=== PATIENT | female | born 2000 | race Native Hawaiian/Other Pacific Islander ===

== ENCOUNTER 2021-02-11 21:56 | Emergency (ER) | payer MEDICAID, SELFPAY ==
[2021-02-11 22:22] VITALS: BP 141/80; PULSE 95; RESP 16; TEMP 37.1; O2SAT 98; BMI 46.0
--- NOTE | 2021-02-12 00:46 | ED_ITS ---
HPI - Skin/Abscess/Foreign Bdy General Chief complaint: Skin/Abscess/Foreign Body Stated complaint: ? infected ingrown hair Time Seen by Provider: 02/11/21 23:31 Source: patient Mode of arrival: ambulatory History of Present Illness HPI narrative: 20-year-old female with no significant past medical history presenting to the ED complaining of lesions to vagina x a few days. Reports small amount of drainage from area yesterday. Admits to similar symptoms in the past in which she was treated for folliculitis. Admits area is painful/burning. Is sexually active with 1 male partner, denies history of STIs, reports she is tested for STIs yearly, has been tested for herpes and is always negative. Denies abdominal pain, nausea/vomiting, dysuria/hematuria, rectal pain, vaginal discharge/bleeding MD complaint: rash and abscess/boil Related Data Previous Rx's Medication Instructions Recorded cephalexin 500 mg PO QID 7 Days #28 cap 02/12/21 doxycycline hyclate 100 mg PO BID 7 Days #14 tab 02/12/21 Allergies Allergy/AdvReac Type Severity Reaction Status Date / Time No Known Allergies Allergy Verified 02/11/21 22:27 [No Known Allergies*] Review of Systems Review of Systems: Constitutional: No Fever, No Chills Cardiovascular: No Chest Pain, No SOB Respiratory: No Cough, No Dyspnea Gastrointestinal: No Nausea, No Vomiting, No Diarrhea, No Abdominal pain Genitourinary: No irregular bleeding, No Dysuria, No Urinary Frequency, No Hematuria Musculoskeletal: No joint pain, No Myalgias, No Joint Swelling Skin: + Skin Lesions, No rash Yes all other systems are reviewed and are negative [facility]LY [facility] Past Medical History Attestation statement: The following information was validated with the patient. Medical History (Updated 02/12/21 @ 00:48 by TYRELL Lawson) No known health problems Social History Social History Advance Directives: No Advance Directives Information Provided: No Patient : No Physical Exam Vital Signs: Vital Signs: Last Vital Signs Temp 98.8 F 02/11/21 22:22 Pulse 95 02/11/21 22:22 Resp 16 02/11/21 22:22 BP 141/80 H 02/11/21 22:22 Pulse Ox 98 02/11/21 22:22 Body Mass Index 46.0 Const: General: cooperative, healthy appearing and no acute distress O rientation/consciousness: patient oriented x3 Limitations: no limitations HENMT: Head: Yes normal to inspection Ears: hearing grossly normal bilaterally General nose exam: Normal external nose present Face and sinu s: Yes normal facial exam Eyes: General: appearance normal, both eyes and all related structures EOM: EOMs intact bilaterally Neck: Neck: Yes normal visual inspection Resp: Effort & Inspection: normal respiratory effort Cardio: Rate: regular rate GI: Inspection: Yes normal to inspection Palpation (GI): Soft to palpation, nontender, no guarding and not rigid Skin: Other: + multiple lesions/ulcerations noted to mons pubis and the labia majora. + indurated, no fluctuance or drainage Rashes: no rashes Neuro: General: patient oriented x3 Gait exam (Neuro): Normal gait present Extrem: General: Yes normal to inspection MDM - Skin/Abscess/Foreign Bdy MDM Narrative Medical decision making narrative: 20-year-old female with no significant past medical history presenting to the ED complaining of lesions to vagina x a few days. On exam VSS, NAD/nontoxic, physical exam as above. Lesions concerning for possible herpes vs infected folliculitis vs abscess. Areas not needing I& D at this time Patient reports she has mupirocin cream at home Plan: Doxycycline/Keflex, herpes culture, OBGYN follow-up Medical Records Attestation: I reviewed the patient's medical records. Lab Data Attestation: I reviewed the patient's lab results. Discharge Plan Discharge Clinical Impression: Abscess, Vaginal lesion Patient Disposition: Home, Self-Care Instructions: Abscess (ED), Abscess Follow-up (ED) Additional Instructions: Keflex and doxycycline or antibiotics, please take as prescribed You may continue to apply topical mupirocin at home Please avoid the sun while on doxycycline as makes you sensitive to the sun We tested you for herpes, the culture should be back in a couple days, you will be contacted only with positive results If area begins to look worse, is more painful, head is red/swollen, begins to drain pus, or you fever please return to the ED immediately Prescriptions: New cephalexin 500 mg capsule 500 mg PO QID 7 Days Qty: 28 RF: 0 doxycycline hyclate 100 mg tablet 100 mg PO BID 7 Days Qty: 14 RF: 0 Referrals: Rosina Ayala MD [Primary Care Provider] - 2 days Luis Black MD [Physician] - 1 week Interventions: ED Discharge Assessment Last Done: 02/12/21 01:03 Discharge Date/Time: 02/12/21 01:06
== END 2021-02-12 01:06 | disposition home or self-care (01) ==
PROVIDERS: Physician Assistant; Emergency Provider Internal Medicine; PCP Pediatrics
DX: N76.0 Acute vaginitis (principal)
CPT/HCPCS: 87255; 99283; 99284

== ENCOUNTER 2022-01-01 02:43 | Emergency (ER) | payer MEDICAID, SELFPAY ==
--- NOTE | ~2022-01-01 | CT_ITS ---
EXAMINATION: CT ABDOMEN AND PELVIS WITHOUT CONTRAST CLINICAL INFORMATION: Flank pain COMPARISON: 04/06/2020 TECHNIQUE: Multidetector volumetric imaging was performed from the superior aspect of the liver through the pubic symphysis. Sagittal and coronal reformatted images were obtained on the technologist's workstation. This CT examination was performed using dose optimization techniques as appropriate, variously including the following: *Automated exposure control *Adjustment of mA and/or kV according to patient size (this includes techniques or standardized protocols for targeted exams where dose is matched to indication/reason for exam; i.e. extremities or head) *Use of iterative reconstruction technique DLP: 1182 mGy-cm FINDINGS: LUNG BASES: Linear opacity of mild atelectasis in left lower lobe. No pulmonary consolidation or pleural effusion at either lung base. LIVER: The liver has normal size, shape, and attenuation. No evidence of liver mass. GALLBLADDER AND BILIARY TREE: Gallbladder is without radiopaque stones, wall thickening or pericholecystic fluid. No dilated bile ducts. PANCREAS: Normal. No edema, pancreatic ductal dilatation or mass. SPLEEN: Normal. ADRENAL GLANDS: Normal. KIDNEYS AND URETERS: The kidneys have normal size and cortical thickness. No perinephric fluid collection. No urolithiasis or hydroureteronephrosis. BLADDER: Normal. No calculi or wall thickening. BOWEL AND PERITONEUM: Stomach is unremarkable. No dilated loops of bowel. The appendix is surgically absent. No overt bowel wall thickening or mesenteric fat stranding. No ascites or pneumoperitoneum. ABDOMINAL WALL: Unremarkable. VASCULATURE: Unremarkable. LYMPH NODES: No pathologic sized lymph nodes in the abdomen or pelvis. The inguinal lymph nodes are in the normal size range, measuring up to 1 cm short axis dimension, and are unchanged compared to 04/06/2020. PELVIC VISCERA: The uterus and ovaries are unremarkable. No pelvic free fluid. SKELETAL: Unremarkable. CT/CT abdomen pelvis wo con IMPRESSION: * No evidence of nephrolithiasis or hydronephrosis. * Status post appendectomy. No inflammatory changes or obstruction along the gastrointestinal tract. No specific source of flank pain is identified.
[2022-01-01 03:06] VITALS: BP 128/102; PULSE 104; RESP 18; TEMP 37.9; O2SAT 98; BMI 48.4
[2022-01-01 03:22] LABS: MANUAL DIFF FLAG NO
[2022-01-01 03:23] LABS: Basophils Absolute Auto 0.1 X10*3/uL (0.0-0.2); Basophils Percent Auto 0.4 % (0-2); Eosinophils Absolute Auto 0.3 X10*3/uL (0.0-0.4); Hematocrit 38.6 % (37.0-47.0); Hemoglobin 12.2 g/dl (12.0-16.0); Imm Gran Abs Auto 0.07 X10*3/uL (0.00-0.03); Imm Gran Pct Auto 0.5 % (0.0-0.4); Lymphocytes Percent Auto 29.7 % (20-40); Mean Corpuscular HGB Conc 31.6 g/dl (31.0-35.0); Mean Corpuscular Hemoglobin 27.6 pg (27.0-33.0); Mean Corpuscular Volume 87.3 fL (80.0-98.0); Mean Platelet Volume 10.9 fL (9.4-12.3); Monocytes Absolute Auto 1.3 X10*3/uL (0.1-1.2); Monocytes Percent Auto 9.4 % (2-11); Neutrophils Absolute Auto 7.7 x10*3/uL (2.0-8.3); Platelet Count 309 X10*3/uL (160-400); Red Blood Count 4.42 X10*6/uL (4.20-5.50); Red Cell Distribution Width 12.8 % (11.0-16.0); White Blood Count 13.4 X10*3/uL (4.8-10.8)
[2022-01-01 03:41] LABS: Amylase 50 U/L (28-100)
[2022-01-01 03:43] LABS: Alanine Aminotransferase 20 U/L (0-31); Albumin Level 4.2 g/dL (3.5-5.0); Alkaline Phosphatase 74 U/L (39-117); Anion Gap 12 (12-20); Aspartate Amino Transferase 16 U/L (5-31); Bilirubin Total 0.6 mg/dL (0.0-1.0); Blood Urea Nitrogen 9 mg/dL (9-16); Calcium 9.1 mg/dL (8.4-10.2); Carbon Dioxide 27 mmol/L (22-29); Chloride 101 mmol/L (96-108); Creatinine Clr Calc Pharmacy 155.1; Estimated Glomerular Filt Rate > 60; Glucose Random 107 mg/dL (60-115); Lipase 6 U/L (8-78); Potassium 4.1 mmol/L (3.3-5.1); Sodium 136 mmol/L (135-145); Total Protein 7.6 g/dL (6.5-8.0)
[2022-01-01 06:28] LABS: Appearance Urine HAZY; Color Urine YELLOW; Glucose Urine UA NEG (NEG); Leukocyte Esterase Urine NEG (NEG); Nitrite Urine NEG (NEG); Specific Gravity - Urine >= 1.030 (1.005-1.025); UACC Culture Trigger NO; Urine Blood 3+ (NEG); Urine Ketones 15 MG/DL (NEG); Urine Protein 1+ MG/DL (NEG-TRACE)
[2022-01-01 06:33] LABS: UPreg QC Valid YES; Urine Pregnancy NEGATIVE (NEGATIVE)
[2022-01-01 06:41] LABS: Bacteria Urine TRACE /LPF; Squamous Epithelial Cell Urine 2+ /LPF
--- NOTE | 2022-01-01 08:06 | ED_ITS ---
HPI - Abdominal Pain General Chief Complaint: Abdominal Pain Stated Complaint: uti;l flank pain Time Seen by Provider: 01/01/22 05:25 Source: patient Mode of arrival: ambulatory Limitations: no limitations History of Present Illness HPI narrative: 21-year-old female came in for evaluation of left flank pain. Patient recently was seen at urgent care for symptoms of UTI 3 days ago patient was started on Bactrim twice a day, return today for worsening of left flank pain and subjective fever with persistent of symptoms. Patient decline nausea, vomiting, diarrhea. History of appendectomy in the past. No vaginal discharge, no vaginal bleeding. Related Data Previous Rx's Medication Instructions Recorded cephalexin 500 mg capsule 500 mg PO QID 7 Days #28 cap 02/12/21 doxycycline hyclate 100 mg tablet 100 mg PO BID 7 Days #14 tab 02/12/21 levofloxacin 750 mg tablet 750 mg PO DAILY 10 Days #10 tab 01/01/22 Allergies Allergy/AdvReac Type Severity Reaction Status Date / Time No Known Allergies Allergy Verified 02/11/21 22:27 [No Known Allergies*] Review of Systems Review of Systems All other systems are reviewed and are negative Constitutional: Reports as per HPI and Reports no additional constitutional complaints Eyes: Reports as per HPI and Reports no additional eye complaints Reports system reviewed and no additional complaints, except as documented Cardiovascular: Reports as per HPI and Reports no additional cardiovascular complaints Respiratory: Reports as per HPI and Reports no additional respiratory complaints Gastrointestinal: Reports as per HPI and Reports no additional gastrointestinal complaints Genitourinary: Reports no additional female genitourinary complaints Musculoskeletal: Reports no additional musculoskeletal complaints Skin/Breast: Reports system reviewed and no additional complaints, except as docu Psychiatric: Reports no additional psychiatric complaints Endocrine: Reports no additional endocrine complaints Hematologic/Lymphatic: Reports no additional hematologic/lymphatic complaints Allergic/Immunologic: Reports no additional allergic/immunologic complaints Reports system reviewed and no additional complaints, except as documented and Reports Abnormal speech present [facility] Past Medical History Medical History No known health problems Social History Social History Advance Directives: No Advance Directives Information Provided: No Physical Exam ED Vital Signs: Vital Signs - 24 hr 01/01/22 03:06 Temperature 100.3 F Pulse Rate 104 H Respiratory Rate 18 Blood Pressure 128/102 H Pulse Oximetry 98 BMI result Body Mass Index 48.4 Vital signs have been reviewed as appeared to be correct. Blood pressure normal. Heart rate elevated. Respiration rate normal. Low-grade fever. Oxygen saturation normal. Appearance: Alert. Oriented X3. No acute distress. Head: Normal external exam. Normocephalic. Atraumatic. No Walls signs noted. No raccoon eyes noted Eyes: PERRLA. EOMI. Conjunctiva and sclera normal. Eyelids normal. ENT: TM's Normal. Pharynx normal. Uvula midline. Moist mucous membranes. No trismus noted. No drooling noted. No muffled voice noted. Neck: Normal inspection. Neck supple. FROM. No adenopathy. Thyroid Normal. No meningeal signs. No neck mass noted. CVS: Normal heart rate and rhythm. Heart sound normal. No murmurs noted. Pulses normal throughout. Respiratory: No respiratory distress. Painless inspiration. Breath sounds normal. No wheezes/rales/rhonchi noted. Chest nontender. No accessory muscle usage noted or decreased air movement noted. Abdomen: Soft and nontender. Bowel sounds normal in all 4 quadrants. No distention noted. No organomegaly noted. No visible injury noted. Back: Left CVA tenderness. Full range of motion noted. Skin: Skin warm and dry. Normal skin color. Normal skin turgor. No rashes/lesions/lacerations noted. Extremities: No lower extremity edema. Extremities exhibit normal range of motion. Extremities nontender. Neuro: Oriented X 3. Cranial nerve exam: II-XII are grossly intact No motor deficit. No sensory deficit. Reflexes normal. Course Course Course Narrative: Assessment and plan. 21-year-old female came in with left flank pain, few days ago patient had symptoms the was suggesting UTI. Patient was treated with Bactrim, came in today for persistent of symptoms with left flank pain and low-grade fever, exam is consistent with pyelonephritis, had CT of the abdomen and pelvis which showed no acute obstructive uropathy. Was given IV Levaquin and IV hydration and patient feels better. Will start the patient on Levaquin p.o. and patient was encouraged to drink plenty of fluids. MDM - Abdominal Pain Lab Data Attestation: I reviewed the patient's lab results. Result diagrams: 01/01/22 03:14 01/01/22 03:14 Labs: Lab Results 01/01/22 01/01/22 01/01/22 Range/Units 03:14 03:14 06:03 WBC 13.4 H (4.8-10.8) X10*3/uL RBC 4.42 (4.20-5.50) X10*6/uL Hgb 12.2 (12.0-16.0) g/dl Hct 38.6 (37.0-47.0) % MCV 87.3 (80.0-98.0) fL MCH 27.6 (27.0-33.0) pg MCHC 31.6 (31.0-35.0) g/dl RDW 12.8 (11.0-16.0) % Plt Count 309 (160-400) X10*3/uL MPV 10.9 (9.4-12.3) fL Immature Gran % (Auto) 0.5 H (0.0-0.4) % Neut % (Auto) 58.0 (45-73) % Lymph % (Auto) 29.7 (20-40) % [place] % (Auto) 9.4 (2-11) % Eos % (Auto) 2.0 (0-4) % Baso % (Auto) 0.4 (0-2) % Lymph # (Auto) 4.0 (1.2-4.9) X10*3/uL [place] # (Auto) 1.3 H (0.1-1.2) X10*3/uL Eos # (Auto) 0.3 (0.0-0.4) X10*3/uL Baso # (Auto) 0.1 (0.0-0.2) X10*3/uL Abs Immat Gran (auto) 0.07 H (0.00-0.03) X10*3/uL Absolute Neuts (auto) 7.7 (2.0-8.3) x10*3/uL Absolute Nucleated RBC 0.000 (0.0-0.012) X10*3/uL Nucleated RBC % (auto) 0.0 (0.0-0.2) /100WBC Sodium 136 (135-145) mmol/L Potassium 4.1 (3.3-5.1) mmol/L Chloride 101 (96-108) mmol/L Carbon Dioxide 27 (22-29) mmol/L Anion Gap 12 (12-20) BUN 9 (9-16) mg/dL Creatinine 0.74 (0.5-1.4) mg/dL Estim Creat Clear Calc 155.1 Estimated GFR > 60 Random Glucose 107 (60-115) mg/dL Lactic Acid (0.5-2.0) mmol/L Calcium 9.1 (8.4-10.2) mg/dL Total Bilirubin 0.6 (0.0-1.0) mg/dL AST 16 (5-31) U/L ALT 20 (0-31) U/L Alkaline Phosphatase 74 (39-117) U/L Total Protein 7.6 (6.5-8.0) g/dL Albumin 4.2 (3.5-5.0) g/dL Amylase 50 (28-100) U/L Lipase 6 L (8-78) U/L Urine Color YELLOW Urine Appearance HAZY Urine pH 6.0 (5.0-8.0) Ur Specific [place] >= 1.030 H (1.005-1.025) Urine Protein 1+ H (NEG-TRACE) MG/DL Urine Glucose (UA) NEG (NEG) MG/DL Urine Ketones 15 (NEG) MG/DL Urine Blood 3+ H (NEG) Urine Nitrite NEG (NEG) Ur Leukocyte Esterase NEG (NEG) Urine RBC 76-150 H (0) /HPF Urine WBC 1-4 (0-4) /HPF Ur Squamous Epith Cells 2+ /LPF Urine Bacteria TRACE /LPF Urine Test (NEGATIVE) 01/01/22 01/01/22 Range/Units 06:03 08:21 WBC (4.8-10.8) X10*3/uL RBC (4.20-5.50) X10*6/uL Hgb (12.0-16.0) g/dl Hct (37.0-47.0) % MCV (80.0-98.0) fL MCH (27.0-33.0) pg MCHC (31.0-35.0) g/dl RDW (11.0-16.0) % Plt Count (160-400) X10*3/uL MPV (9.4-12.3) fL Immature Gran % (Auto) (0.0-0.4) % Neut % (Auto) (45-73) % Lymph % (Auto) (20-40) % [place] % (Auto) (2-11) % Eos % (Auto) (0-4) % Baso % (Auto) (0-2) % Lymph # (Auto) (1.2-4.9) X10*3/uL [place] # (Auto) (0.1-1.2) X10*3/uL Eos # (Auto) (0.0-0.4) X10*3/uL Baso # (Auto) (0.0-0.2) X10*3/uL Abs Immat Gran (auto) (0.00-0.03) X10*3/uL Absolute Neuts (auto) (2.0-8.3) x10*3/uL Absolute Nucleated RBC (0.0-0.012) X10*3/uL Nucleated RBC % (auto) (0.0-0.2) /100WBC Sodium (135-145) mmol/L Potassium (3.3-5.1) mmol/L Chloride (96-108) mmol/L Carbon Dioxide (22-29) mmol/L Anion Gap (12-20) BUN (9-16) mg/dL Creatinine (0.5-1.4) mg/dL Estim Creat Clear Calc Estimated GFR Random Glucose (60-115) mg/dL Lactic Acid 0.5 (0.5-2.0) mmol/L Calcium (8.4-10.2) mg/dL Total Bilirubin (0.0-1.0) mg/dL AST (5-31) U/L ALT (0-31) U/L Alkaline Phosphatase (39-117) U/L Total Protein (6.5-8.0) g/dL Albumin (3.5-5.0) g/dL Amylase (28-100) U/L Lipase (8-78) U/L Urine Color Urine Appearance Urine pH (5.0-8.0) Ur Specific [place] (1.005-1.025) Urine Protein (NEG-TRACE) MG/DL Urine Glucose (UA) (NEG) MG/DL Urine Ketones (NEG) MG/DL Urine Blood (NEG) Urine Nitrite (NEG) Ur Leukocyte Esterase (NEG) Urine RBC (0) /HPF Urine WBC (0-4) /HPF Ur Squamous Epith Cells /LPF Urine Bacteria /LPF Urine Test NEGATIVE (NEGATIVE) Imaging Data CT abdomen pelvis: Attestation: I personally reviewed and interpreted this imaging study as follows: Radiologist's impression: *? No evidence of nephrolithiasis or hydronephrosis. *? Status post appendectomy. No inflammatory changes or obstruction along the gastrointestinal tract. No specific source of flank pain is identified. Discharge Plan Discharge Clinical Impression: Pyelonephritis Patient Disposition: Home, Self-Care Instructions: Kidney Infection (ED) Prescriptions: New levofloxacin 750 mg tablet 750 mg PO DAILY 10 Days Qty: 10 0RF No Action cephalexin 500 mg capsule 500 mg PO QID 7 Days Qty: 28 0RF doxycycline hyclate 100 mg tablet 100 mg PO BID 7 Days Qty: 14 0RF Referrals: [facility] [Primary Care Provider] -
[2022-01-01] MEDS: Acetaminophen 325 MG TABLET 650 MG PO (08:24)
[2022-01-01] MEDS: 0.9 % Sodium Chloride 1,000 ML 999 ML IV (08:25)
[2022-01-01 08:45] LABS: Lactic Acid 0.5 mmol/L (0.5-2.0)
[2022-01-01] MEDS: levoFLOXacin/D5W 750 MG/150 ML PIGGYBACK 100 MG IV (08:47)
== END 2022-01-01 11:02 | disposition home or self-care (01) ==
PROVIDERS: Emergency Provider Emergency Medicine
DX: N12 Tubulo-interstitial nephritis, not specified as acute or chronic (principal); R10.9 Unspecified abdominal pain; Z79.899 Other long term (current) drug therapy
CPT/HCPCS: 36415; 74176; 80053; 81001; 81025; 82150; 83605; 83690; 85025; 87040; 87147; 87205; 96361; 96365; 99282; J1956

== ENCOUNTER 2022-12-09 07:53 | Outpatient (REF) | payer MEDICAID, SELFPAY ==
[2022-12-09 09:15] LABS: Anion Gap 11 (12-20); Blood Urea Nitrogen 10 mg/dL (9-16); Calcium 9.5 mg/dL (8.4-10.2); Carbon Dioxide 28 mmol/L (22-29); Chloride 105 mmol/L (96-108); Estimated Glomerular Filt Rate > 60; Glucose Random 110 mg/dL (60-115); Potassium 4.6 mmol/L (3.3-5.1); Sodium 139 mmol/L (135-145)
[2022-12-09 09:35] LABS: Thyroid Stimulating Hormone 1.24 uIU/mL (0.32-4.0)
== END 2022-12-09 07:54 | disposition home or self-care (01) ==
LOC: HO.LAB 07:53
PROVIDERS: PCP Internal Medicine; Visit Provider Internal Medicine
DX: E66.01 Morbid (severe) obesity due to excess calories (principal); Z68.42 Body mass index [BMI] 45.0-49.9, adult; L21.0 Seborrhea capitis
CPT/HCPCS: 36415; 80048; 84443

== ENCOUNTER 2023-03-23 18:26 | Outpatient (REF) | payer OTHER, SELFPAY | END 2023-03-23 18:27 | disposition home or self-care (01) | LOC: HO.HHCLNP 18:26 | PROVIDERS: Visit Provider Emergency Medicine | DX: R30.0 Dysuria (principal); N30.00 Acute cystitis without hematuria | CPT/HCPCS: 87086; 87088; 87186 ==

== ENCOUNTER 2023-06-14 08:44 | Outpatient (REF) | payer OTHER, SELFPAY ==
[2023-06-14 11:35] LABS: Estimated Average Glucose 117 mg/dL; Hemoglobin A1c % 5.7 % (<6.0)
[2023-06-14 11:44] LABS: Alanine Aminotransferase 19 U/L (0-31); Albumin Level 4.3 g/dL (3.5-5.0); Alkaline Phosphatase 65 U/L (39-117); Anion Gap 10 (12-20); Aspartate Amino Transferase 19 U/L (5-31); Bilirubin Total 0.6 mg/dL (0.0-1.0); Blood Urea Nitrogen 7 mg/dL (9-16); Calcium 9.5 mg/dL (8.4-10.2); Carbon Dioxide 28 mmol/L (22-29); Chloride 105 mmol/L (96-108); Estimated Glomerular Filt Rate > 60; Glucose Random 96 mg/dL (60-115); Potassium 3.9 mmol/L (3.3-5.1); Sodium 139 mmol/L (135-145); Total Protein 7.9 g/dL (6.5-8.0)
== END 2023-06-14 08:45 | disposition home or self-care (01) ==
LOC: HO.HHCL 08:44
PROVIDERS: Visit Provider Nurse Practitioner Primary Care
DX: R73.09 Other abnormal glucose (principal)
CPT/HCPCS: 36415; 80053; 83036

== ENCOUNTER 2023-07-11 15:51 | Outpatient (REF) | payer OTHER, SELFPAY ==
--- NOTE | ~2023-07-11 | US_ITS ---
EXAMINATION: US PELVIS COMPLETE CLINICAL INFORMATION: Evaluate for PCOS COMPARISON: CT abdomen pelvis 01/01/2022 TECHNIQUE: Transabdominal and transvaginal imaging was performed. FINDINGS: The uterus is of normal size and echogenicity measuring 6.3 x 2.7 x 3.9 cm. A regular homogeneous endometrium is identified measuring 0.4 cm. Both ovaries are of mildly symmetrically enlarged with multiple peripheral follicles. The right measures 3.9 x 3.1 x 2.6 cm for a volume of 18.4 mL. The left measures 3.4 x 2.7 x 2.2 cm for a volume of 10.6 mL. There is trace physiologic volume simple pelvic free fluid. US/US pelvic and transvaginal IMPRESSION: Both ovaries are mildly symmetrically enlarged with multiple peripheral follicles which can be seen in the setting of polycystic ovarian syndrome in the appropriate clinical setting.
== END 2023-07-11 15:52 | disposition home or self-care (01) ==
LOC: HO.US 15:51
PROVIDERS: PCP Nurse Practitioner Primary Care; Visit Provider Nurse Practitioner Primary Care
DX: N92.6 Irregular menstruation, unspecified (principal)
CPT/HCPCS: 76830; 76856

== ENCOUNTER 2023-11-23 19:21 | Outpatient (REF) | payer OTHER, SELFPAY | END 2023-11-23 19:22 | disposition home or self-care (01) | LOC: HO.HHCLNP 19:21 | PROVIDERS: Visit Provider Internal Medicine | DX: R30.0 Dysuria (principal) | CPT/HCPCS: 87086 ==

== ENCOUNTER 2023-12-01 07:08 | Outpatient (REF) | payer OTHER, SELFPAY ==
[2023-12-05 20:28] LABS: Testosterone, Free 9.7 pg/mL (0.1-6.4); Testosterone, Total 47 ng/dL (2-45)
== END 2023-12-01 07:09 | disposition home or self-care (01) ==
LOC: HO.LAB 07:08
PROVIDERS: PCP Nurse Practitioner Primary Care; Visit Provider Nurse Practitioner Primary Care
DX: N92.6 Irregular menstruation, unspecified (principal)
CPT/HCPCS: 36415; 84402; 84403

== ENCOUNTER 2024-01-21 12:58 | Outpatient (AMB) | payer OTHER, SELFPAY ==
[2024-01-21 13:15] VITALS: BMI 50.0
--- NOTE | 2024-01-21 13:15 | A.OFFVIS_ITS ---
VS Expanded 01/21/24 13:15 01/29/24 14:38 Height 5 ft 3 in 5 ft 3 in Weight 282 lb 3.067 oz 282 lb BMI 50.0 49.9 Intake Visit Reasons: Severe Obesity/LVM Allergies No Known Allergies [No Known Allergies*] Allergy (Verified 02/11/21 22:27) Nutrition Presentation Details: Pt presents for MNT for obesity . Pt was referred by Tricia Dsouza from [facility]. Typical meal B: bagel/ coffee creamer lunch/dinner rice/meat or wrap or sand , water food frequency: fish 1/wk dairy: 1/d fruits: 1/da vegetables : 3 x/wk eating out : 2-3 x/w fast foods/Chines etoh: occ smoking: no physical activity: sedentary BS Monitoring Most Recent Diabetes Results: Cholesterol 165 MG/DL 08/21/18 HDL Cholesterol 42 MG/DL 08/21/18 Triglycerides 123 MG/DL 08/21/18 Creatinine 0.60 mg/dL (0.5-1.4) 06/14/23 Blood Urea Nitrogen 7 mg/dL (9-16) L 06/14/23 Sodium 139 mmol/L (135-145) 06/14/23 Potassium 3.9 mmol/L (3.3-5.1) 06/14/23 Chloride 105 mmol/L (96-108) 06/14/23 Carbon Dioxide 28 mmol/L (22-29) 06/14/23 Calcium 9.5 mg/dL (8.4-10.2) 06/14/23 AST 19 U/L (5-31) 06/14/23 ALT 19 U/L (0-31) 06/14/23 Total Protein 7.9 g/dL (6.5-8.0) 06/14/23 Albumin 4.3 g/dL (3.5-5.0) 06/14/23 [id number] Equation Height: 5 ft 3 in Weight: 282 lb Resting Metabolic Rate: 2007.74 Calculated Activity Level: Sedentary Calories Needed to Maintain Weight: 2410.49 Diagnosis Nutrition problem #1: food nutri know defi As related to (etiology) #1: diagnosis As evidenced by (sign/symptom) #1: knowledge deficit of diet [facility] Medical History No known health problems Assessment & Plan Assessment & Plan (1) Morbid obesity: Code(s): E66.01 - Morbid (severe) obesity due to excess calories Category: Medical Plan: Wt: 128 Kg ( 01/2024 ) Est kcal needs as per MSJ: 2400 (40% carb, 30% protein/fat) Est fluid needs as per 25-30 ml/d: 3800 Est prot per day as per 1 g/kg bw: 128 Recommend fiber intake : 8-10 g per day and gradually increase to 25-28 g per day for women and 35-38 g for men or as tolerated Recommend sodium intake per day : less than 2000 mg Educated patient on: ( R = reviewed V = verbalizes understanding N/R = needs review N/A = not applicable * Food sources of carbohydrate, adequate serving sizes and its role in various health conditions: R * Differences between complex carbohydrates a simple carbohydrates, role of fiber in diet: R V N/R * Lean protein sources of foods: R * Differences between types of fats and role in diet (mono on saturated fat fatty acids, saturated fatty acids, trans fats): R V N/R * Food sources of sodium in salt and healthy modifications for heart health in kidney health: R V R/V * Vitamins and minerals: R V N/R * Healthy plate method concept: R * Physical activity: Benefits a precaution: R V N/R * Patient Instructions: Reduce total carbs per meal to 80 g or less following healthy plate method practice mindful eating strategies Coding Level of Care Code Nutr Indiv Intake (56492) Diagnoses Morbid obesity E66.01 Time Spent (min) 30
[2024-01-29 14:38] VITALS: BMI 49.9
== END 2024-01-21 13:47 | disposition home or self-care (01) ==
PROVIDERS: PCP Nurse Practitioner Primary Care; Visit Provider Dietitian, Registered
DX: E66.01 Morbid (severe) obesity due to excess calories (principal)

== ENCOUNTER → 2024-01-21 12:58 | Outpatient (BNVA) | payer OTHER, SELFPAY | PROVIDERS: PCP Nurse Practitioner Primary Care; Visit Provider Dietitian, Registered | DX: E66.01 Morbid (severe) obesity due to excess calories (principal); Z68.43 Body mass index [BMI] 50.0-59.9, adult; Z71.3 Dietary counseling and surveillance | CPT/HCPCS: 97802 ==

== ENCOUNTER 2024-03-03 12:03 | Outpatient (REF) | payer OTHER, SELFPAY ==
[2024-03-03 14:17] LABS: HCG Quantitative 775 mIU/mL
== END 2024-03-03 12:04 | disposition home or self-care (01) ==
LOC: HO.HHCL 12:03
PROVIDERS: Visit Provider Advanced Practice Midwife
DX: Z32.00 Encounter for pregnancy test, result unknown (principal)
CPT/HCPCS: 36415; 84702

== ENCOUNTER 2024-03-05 08:06 | Outpatient (REF) | payer OTHER, SELFPAY ==
[2024-03-05 11:57] LABS: HCG Quantitative 1502 mIU/mL
== END 2024-03-05 08:07 | disposition home or self-care (01) ==
LOC: HO.HHCL 08:06
PROVIDERS: Visit Provider Advanced Practice Midwife
DX: Z3A.01 Less than 8 weeks gestation of pregnancy (principal)
CPT/HCPCS: 36415; 84702

== ENCOUNTER 2024-03-11 16:35 | Outpatient (REF) | payer OTHER, SELFPAY ==
--- NOTE | ~2024-03-11 | US_ITS ---
EXAMINATION: US , LIMITED CLINICAL INFORMATION: Question of an ectopic COMPARISON: None available. TECHNIQUE: Transabdominal scanning only was performed. Patient refused an endovaginal exam. FINDINGS: LMP: 01/20/2024 Gestational age by LMP: 7 weeks 2 days with an MONTRELL of 10/26/2024 A gestational sac is seen in the uterus with a questionable yolk sac and pole seen. No cardiac activity is identified. What is thought to be a pole has a length of 0.23 cm which would correspond to a gestational age of 5 weeks 6 days with an MONTRELL of 11/05/2024. Right ovary measures 2.5 x 1.5 x 1.2 cm and appears normal Left ovary measures 2.7 x 1.4 x 2.2 cm is normal. No free fluid is seen. US/US OB limited IMPRESSION: Limited study with transabdominal imaging only. A gestational sac appears to be present but a definite pole with a heartbeat is not seen at this time. Correlation with beta hCG levels is recommended, as nonvisualization of a pole could be due to an early stage of . Short-term sonographic follow-up and serial beta hCG levels are recommended to assess for development of a viable pole. Perhaps, with an endovaginal study, additional information can be gleaned.
== END 2024-03-11 16:36 | disposition home or self-care (01) ==
LOC: HO.US 16:35
PROVIDERS: Visit Provider Advanced Practice Midwife
DX: R10.2 Pelvic and perineal pain (principal); Z3A.01 Less than 8 weeks gestation of pregnancy
CPT/HCPCS: 76815

== ENCOUNTER 2024-03-12 08:17 | Outpatient (REF) | payer OTHER, SELFPAY ==
[2024-03-12 11:23] LABS: Hematocrit 38.4 % (37.0-47.0); Hemoglobin 12.4 g/dl (12.0-16.0)
[2024-03-12 11:47] LABS: HCG Quantitative 12886 mIU/mL
== END 2024-03-12 08:18 | disposition home or self-care (01) ==
LOC: HO.HHCL 08:17
PROVIDERS: Referring Provider Nurse Practitioner Primary Care; Visit Provider Advanced Practice Midwife
DX: Z34.90 Encounter for supervision of normal pregnancy, unspecified, unspecified trimester (principal); Z3A.01 Less than 8 weeks gestation of pregnancy
CPT/HCPCS: 36415; 84702; 85014; 85018

== ENCOUNTER 2024-03-20 14:52 | Outpatient (REF) | payer OTHER, SELFPAY ==
--- NOTE | ~2024-03-20 | US_ITS ---
EXAMINATION: US OBSTETRICAL ULTRASOUND CLINICAL INFORMATION: Unknown last menstrual period. COMPARISON: Ultrasound dated 03/11/2024. LMP: Unknown. TECHNIQUE: Transabdominal ultrasound was performed. The patient declined a transvaginal examination. FINDINGS: There is a single intrauterine gestational sac with visible yolk sac, embryo/fetus, and cardiac activity. There is no significant subchorionic hemorrhage or hematoma. HR: 140 beats per minute. CRL (crown rump length): 0.88 cm. MONTRELL (estimated date of delivery): 11/05/2024 +/- 4 days. MATERNAL ADNEXA: The right maternal ovary measures 2.7 x 2.3 x 1.9 cm. The left maternal ovary measures 3.1 x 2.2 x 2.9 cm. There is no significant maternal adnexal mass. No maternal pelvic ascites. US/US OB <= 14 weeks fetus IMPRESSION: 1. Single intrauterine gestation with ultrasound gestational age of 7 weeks 1 day. 2. Estimated date of delivery is 11/05/2024 +/- 4 days. 3. No maternal adnexal mass or pelvic ascites.
== END 2024-03-20 14:53 | disposition home or self-care (01) ==
LOC: HO.US 14:52
PROVIDERS: PCP Nurse Practitioner Primary Care; Visit Provider Advanced Practice Midwife
DX: Z34.91 Encounter for supervision of normal pregnancy, unspecified, first trimester (principal); Z3A.01 Less than 8 weeks gestation of pregnancy
CPT/HCPCS: 76801

== ENCOUNTER 2024-08-25 10:29 | Emergency (ER) | payer OTHER, SELFPAY ==
[2024-08-25 10:49] VITALS: BP 136/88; PULSE 124; RESP 18; TEMP 36.7; O2SAT 100; BMI 49.7
--- NOTE | 2024-08-25 11:09 | ED_ITS ---
HPI - General Adult General Chief complaint: Nausea/Vomiting/Diarrhea Stated complaint: 29 wks preg decreased baby movement, vomiting Time Seen by Provider: 08/25/24 11:16 Source: patient Mode of arrival: ambulatory Limitations: no limitations History of Present Illness ED Provider: Dr. Brijesh Nagel HPI narrative: 23-year-old female history of hypertension, 30 , MONTRELL 11/05/2024 , care has been at [facility] who presents emergency department for evaluation of nausea, vomiting, diarrhea and abdominal pain since midnight. Patient states she has been vomiting yellow bile every 30 minutes. She states she was had watery diarrhea every hour with no blood in the emesis or diarrhea. She states she was not been able to hold down any food or fluid since midnight. She states she was feeling weak and lightheaded. She was complaining of abdominal pain and points to her epigastric area and describes the pain is a ?discomfort? which has been constant since onset. The pain is 6/10 at its worst. She denied fever, chills, rhinorrhea, sore throat, cough, chest pain. She states she has been short of breath since midnight but denied dyspnea on exertion. Patient complains of myalgias but no arthralgias. She was not aware of any sick contacts. Patient does have hypertension and she states she has been compliant with her nifedipine 30 mg daily. Related Data Previous Rx's ?Medication ?Instructions ?Recorded cephalexin 500 mg capsule 500 mg PO QID 7 days #28 caps 02/12/21 doxycycline hyclate 100 mg tablet 100 mg PO BID 7 days #14 tabs 02/12/21 levofloxacin 750 mg tablet 750 mg PO DAILY 10 days #10 tabs 01/01/22 Allergies Allergy/AdvReac Type Severity Reaction Status Date / Time No Known Allergies Allergy Verified 08/25/24 10:52 [No Known Allergies*] Review of Systems 2 Review of Systems: Yes all other systems are reviewed and are negative [facility] Past Medical History [facility] Narrative: Social history: She denies tobacco, alcohol and drug use. Medical History No known health problems Social History Social History Advance Directives: No Advance Directives Information Provided: Yes Do you have a plan to hurt others: No Plan Physical Exam ED Vital Signs: Vital Signs - 24 hr 08/25/24 10:49 Temperature 98.1 F Pulse Rate 124 H Respiratory Rate 18 Blood Pressure 136/88 Pulse Oximetry 100 Oxygen Delivery Method Room Air BMI result Body Mass Index 49.7 Vital signs revealed an elevated heart rate of 124 and elevated blood pressure of 136/88-patient does have essential hypertension and is on nifedipine. Exam: General: Awake, alert in no distress Head: Normocephalic, atraumatic EENT: PERRL, Lids normal, sclera normal, conjunctiva normal, nose normal , ears normal, throat without erythema or exudates Neck: Supple, no adenopathy Lung: breath sounds symmetric, no wheezing, rales or rhonchi Chest: symmetric movement, nontender Heart: regular rate and rhythm, normal S1, S2 no murmurs or rubs Abdomen: Gravid uterus with mild to moderate tenderness to palpation of the anterior aspect of the uterus and epigastric area, normoactive bowel sounds, no voluntary, involuntary guarding, no rebound. Back: no vertebral tenderness, no CVAT Extremities: no deformities, moves all extremities symmetrically Neuro: Awake, alert, oriented, normal speech, cranial nerves intact, moves all extremities symmetrically Psych: Pleasant, cooperative Course Course Course Narrative: This is an RME: Additional HPI, ROS, PE not included below will be deferred to primary provider. RME assessment and note performed by: Nisa Bell PA-C This is a 89-corc-nnf-female, 29 weeks , who presents to the ER with complaints of abdominal pain, nausea, vomiting and diarrhea. Reports decreased baby movement. Pt to be brought back to main ED [facility]. Medical Decision Making Medical Decision Making MDM Narrative: 23-year-old female history of hypertension, 30 , , MONTRELL 11/05/2024 , care has been at [facility] who presents emergency department for evaluation of nausea, vomiting, diarrhea and abdominal pain since midnight. Patient has been vomiting yellow bile every 30 minutes and having watery diarrhea every hour, complaining of abdominal discomfort with tenderness in the epigastric area and over the anterior aspect of the uterus. Patient does have an elevated heart rate of 124 and an elevated blood pressure of 36/88-she does have essential hypertension he has been compliant with her nifedipine. Differential diagnosis: ?Includes but is not limited to viral syndrome, viral gastroenteritis, gastritis, preeclampsia, labor, anemia, electrolyte abnormalities Course: 12:22 We will also obtain a heart tone. Patient ordered to get normal saline IV x1 L , Zofran 4 mg IV, Pepcid 20 mg IV. Patient was presentation is most likely caused by a viral gastroenteritis. The patient's blood pressure is slightly elevated but I do not think that she has preeclampsia at this time.. However given the fact that she is 29 weeks with a abdominal pain, the patient will need monitoring. I did discuss the patient's presentation with the OB /EXCEPTIONAL STUDENT EDUCATION AIDE physician on-call for [facility], Dr. Davis. She did accept the patient as a ED to [place] [address]. At this time I do not think that the patient was in active labor and the patient will be transferred by BLS ambulance. My independent interpretation patient's laboratory evaluation is as follows: WBC elevated 12,700. Normocytic anemia with an H&H of 11.9 and 35.7. Platelet count was normal 298,000. Glucose elevated 129. Magnesium slightly low at 1.5- this is not significant. LFTs and bilirubin were normal. COVID-19, influenza and RSV were negative. Admission/Observation Consideration of admission/observation: Escalation of care including admission/observation considered (Yes) Consult Healthcare Provider Management of the patient was discussed with: Child Guidance Counselor (Dr. Davis [facility] FORMING DEPARTMENT END FINDER) Lab Data MDM Lab Attestation statement: I reviewed the patient's lab results. 08/25/24 10:58 08/25/24 10:58 Labs: Lab Results 08/25/24 Range/Units 10:58 WBC 12.7 H (4.8-10.8) X10*3/uL RBC 4.10 L (4.20-5.50) X10*6/uL Hgb 11.9 L (12.0-16.0) g/dl Hct 35.7 L (37.0-47.0) % MCV 87.1 (80.0-98.0) fL MCH 29.0 (27.0-33.0) pg MCHC 33.3 (31.0-35.0) g/dl RDW 13.2 (11.0-16.0) % Plt Count 298 (160-400) X10*3/uL MPV 12.2 (9.4-12.3) fL Immature Gran % (Auto) 0.6 H (0.0-0.4) % Neut % (Auto) 90.4 H (45-73) % Lymph % (Auto) 5.6 L (20-40) % Pepin % (Auto) 3.0 (2-11) % Eos % (Auto) 0.2 (0-4) % Baso % (Auto) 0.2 (0-2) % Lymph # (Auto) 0.7 L (1.2-4.9) X10*3/uL Pepin # (Auto) 0.4 (0.1-1.2) X10*3/uL Eos # (Auto) 0.0 (0.0-0.4) X10*3/uL Baso # (Auto) 0.0 (0.0-0.2) X10*3/uL Abs Immat Gran (auto) 0.07 H (0.00-0.03) X10*3/uL Absolute Neuts (auto) 11.5 H (2.0-8.3) x10*3/uL Absolute Nucleated RBC 0.000 (0.0-0.012) X10*3/uL Nucleated RBC % (auto) 0.0 (0.0-0.2) /100WBC Smear Tech's Comments VERIFIED Sodium 141 (135-145) mmol/L Potassium 3.8 (3.3-5.1) mmol/L Chloride 106 (96-108) mmol/L Carbon Dioxide 21 L (22-29) mmol/L Anion Gap 18 (12-20) BUN 7 L (9-16) mg/dL Creatinine 0.53 (0.5-1.4) mg/dL Estim Creat Clear Calc 216.4 Estimated GFR > 60 Random Glucose 129 H (60-115) mg/dL Calcium 9.2 (8.4-10.2) mg/dL Magnesium 1.5 L (1.6-2.6) mg/dL Total Bilirubin 0.5 (0.0-1.0) mg/dL AST 18 (5-31) U/L ALT 13 (0-31) U/L Alkaline Phosphatase 108 (39-117) U/L Total Protein 7.7 (6.5-8.0) g/dL Albumin 3.7 (3.5-5.0) g/dL Influenza Type A (PCR) NEGATIVE (Negative) Influenza Type B (PCR) NEGATIVE (Negative) RSV RNA Qual (PCR) NEGATIVE (Negative) SARS-CoV-2 RNA (RT-PCR) NEGATIVE (Negative) Chronic Conditions Patient?s care impacted by: Hypertension Discharge Plan Discharge Clinical Impression: Third trimester , Viral syndrome, Vomiting, Diarrhea, Abdominal pain Patient Disposition: [facility] Transfer Details: ED to [address] Prescriptions: No Action cephalexin 500 mg capsule 500 mg PO QID 7 Days Qty: 28 0RF doxycycline hyclate 100 mg tablet 100 mg PO BID 7 Days Qty: 14 0RF levofloxacin 750 mg tablet 750 mg PO DAILY 10 Days Qty: 10 0RF Print Language: Maltese
[2024-08-25 11:22] LABS: Basophils Percent Auto 0.2 % (0-2); Eosinophils Percent Auto 0.2 % (0-4); Hematocrit 35.7 % (37.0-47.0); Hemoglobin 11.9 g/dl (12.0-16.0); Imm Gran Abs Auto 0.07 X10*3/uL (0.00-0.03); Imm Gran Pct Auto 0.6 % (0.0-0.4); Lymphocytes Absolute Auto 0.7 X10*3/uL (1.2-4.9); Lymphocytes Percent Auto 5.6 % (20-40); MANUAL DIFF FLAG SCAN; Mean Corpuscular HGB Conc 33.3 g/dl (31.0-35.0); Mean Corpuscular Volume 87.1 fL (80.0-98.0); Mean Platelet Volume 12.2 fL (9.4-12.3); Monocytes Absolute Auto 0.4 X10*3/uL (0.1-1.2); Neutrophils Absolute Auto 11.5 x10*3/uL (2.0-8.3); Neutrophils Percent Auto 90.4 % (45-73); Platelet Count 298 X10*3/uL (160-400); Red Cell Distribution Width 13.2 % (11.0-16.0); SCAN SMEAR FLAG 1; White Blood Count 12.7 X10*3/uL (4.8-10.8)
[2024-08-25 11:35] LABS: Alanine Aminotransferase 13 U/L (0-31); Albumin Level 3.7 g/dL (3.5-5.0); Alkaline Phosphatase 108 U/L (39-117); Anion Gap 18 (12-20); Aspartate Amino Transferase 18 U/L (5-31); Bilirubin Total 0.5 mg/dL (0.0-1.0); Blood Urea Nitrogen 7 mg/dL (9-16); Calcium 9.2 mg/dL (8.4-10.2); Carbon Dioxide 21 mmol/L (22-29); Chloride 106 mmol/L (96-108); Creatinine Clr Calc Pharmacy 216.4; Estimated Glomerular Filt Rate > 60; Glucose Random 129 mg/dL (60-115); Magnesium 1.5 mg/dL (1.6-2.6); Potassium 3.8 mmol/L (3.3-5.1); Sodium 141 mmol/L (135-145); Total Protein 7.7 g/dL (6.5-8.0)
[2024-08-25 11:49] LABS: SLIDE REVIEW VERIFIED
[2024-08-25 11:56] LABS: Influenza A PCR NEGATIVE (Negative); Influenza B PCR NEGATIVE (Negative); Resp Syncy Virus RNA Qual PCR NEGATIVE (Negative); SARS COV2 PCR INHOUSE NEGATIVE (Negative)
[2024-08-25] MEDS: 0.9 % Sodium Chloride 1,000 ML 999 ML IV (12:07)
[2024-08-25] MEDS: Famotidine/PF 20 MG/2 ML VIAL IVPUSH (12:12)
[2024-08-25] MEDS: ondansetron HCL 4 MG/2 ML VIAL IVPUSH (12:12)
--- NOTE | 2024-08-25 13:14 | PC.NURSE ---
This Nurse called [facility] L&D floor to give nurse to nurse report, after calling 4 times no answer.
[2024-08-25 13:15] VITALS: BP 136/88; PULSE 116; RESP 18; TEMP 36.7; O2SAT 100
== END 2024-08-25 13:16 | disposition short-term general hospital (02) ==
PROVIDERS: Emergency Provider Emergency Medicine Emergency Medical Services; PCP Nurse Practitioner Primary Care
DX: O98.513 Other viral diseases complicating pregnancy, third trimester (principal); B33.8 Other specified viral diseases; O26.893 Other specified pregnancy related conditions, third trimester; R11.2 Nausea with vomiting, unspecified; R10.9 Unspecified abdominal pain; R19.7 Diarrhea, unspecified; Z03.818 Encounter for observation for suspected exposure to other biological agents ruled out
CPT/HCPCS: 0241U; 80053; 83735; 85025; 96361; 96374; 96375; 99285; J2405

== ENCOUNTER 2025-03-20 16:10 | Outpatient (REF) | payer OTHER, SELFPAY ==
--- OUTSIDE RECORDS SUMMARY | 2025-03-20 16:12 | XMS_ITS | Encounter Summary ---
Author Organization [employer] Address [address] [place] [address] Care Team Providers Care Engine Lathe Tender Name Role Phone Tricia Dsouza PAULO Primary Care Provider [phone] Encounter Details Date Type Department Care Team (Latest Contact Info) Description 03/20/2025 Travel Social History Tobacco Use Types Packs/Day Years Used Date Smoking Tobacco: Never Passive Smoke Exposure: Never Smokeless Tobacco: Never Alcohol Use Standard Drinks/Week Comments Never 0 (1 standard drink = 0.6 oz pur e alcohol) Depression Answer Date Recorded Patient Health Questionnaire-9 Score 0 12/20/2023 Patient Health Questionnaire-9 Score 0 12/20/2023 Last PHQ-9: Questionnaire Data Not on file 0 12/20/2023 Housing Stability Answer Date Recorded What is your housing situation today? I have bette busch 03/18/[address] you li ve. Do you have problems with any of the following? None of the above 03/18/2024 Food Insecurity Answer Date Recorded Within the past 12 months, y ou worried that your food would run out before you got money to buy more: Never True 03/18/2024 Within the past 12 months,th e food you bought just didn't last and you didn't have enough money to get more: Never True Transportation Answer Date Recorded In the past 12 months, has l ack of transportation kept you from medical appts, meetings, work or from getting things needed for daily living? No 03/18/2024 Utilities Answer Date Recorded In the past 12 months, has t he electric, gas, oil or water company threatened to shut off services in your home? No 03/18/2024 Depression Answer Date Recorded Patient Health Questionnaire-2 Score 0 12/20/2023 Internet Access Answer Date Recorded Internet Access Q1 Yes 03/13/2025 Internet Access Q2 Not on file 03/13/2025 Comments Unknown Sex and Gender Information Value Date Recorded Sex Assigned at Female 06/05/2022 10:27 AM EDT Legal Sex Female 10:27 AM EDT Gender Identity Female 06/05/2022 10:27 AM EDT Sexual Orientation Straight 06/05/2022 10 :27 AM EDT documented as of this encounter Functional Status * Over the last 2 weeks, how often have you been bothered by any of the following problems? Question Answer Date of Assessment Author Feeling nervous, anxious, or on edge 1 03/20/2025 2:19 PM EDT Yaritza Velez [place] Not being able to stop or co ntrol worrying 1 03/20/2025 2:19 PM EDT Yaritza Velez MA Worrying too much about diff erent things 1 03/20/2025 2:19 PM EDT Yaritza Velez MA Trouble relaxing 0 03/20/2025 2:19 PM EDT O Yaritza aguilar MA Being so restless that it is hard to sit still 0 03/20/2025 2:19 PM EDT Yaritza Velez MA Becoming easily annoyed or irritable 0 03/20/2025 2:19 PM EDT Yaritza Velez MA Feeling afraid as if somethi ng awful might happen 0 03/20/2025 2:19 PM EDT Yaritza Velez MA ESTRELLA-7 Total Score 3 03/20/2025 2:19 PM EDT Yaritza Velez MA documented as of this encounter Plan of Treatment Upcoming Encounters Date Type Department Care Team (Late st Contact Info) Description 06/10/2025 3:00 PM EST Office Visit [facility] [address] [place] [address] Gema Sauer documented as of this encounter Visit Diagnoses Not on filedocumented in this encounter Additional Health Concerns Assessment Noted Time PHQ-9 Depression Total Score: 0 12/20/19 24 11:28 AM EDT documented as of this encounter Care Teams Engine Lathe Tender Relationship Specialty Start Date End Date Tricia Dsouza ANP [address] [place] [address] PCP - General Family Medicine 06/13/23 documented as of this encounter
--- OUTSIDE RECORDS SUMMARY | 2025-03-20 16:12 | XMS_ITS | Encounter Summary ---
Author Organization [facility] Address [address] [place] [phone] Phone Care Team Providers Care Body Liner Name Role Phone Osmar Gallagher MD Primary Care Provider [phone] Encounter Details Date Type Department Care Team (Late st Contact Info) Description 08/21/2013 Documentation [facility] [address] [place] [address] Family Medicine, Physician [address] [place], [place] [id number] Social History Tobacco Use Types Packs/Day Years Used Date Smoking Tobacco: Never Assessed Comments Unknown Sex and Gender Information Value Date Recorded Sex Assigned at Not on file Legal Sex Female 4:52 PM EDT Gender Identity Not on file Sexual Orientation Not on file documented as of this encounter Plan of Treatment Not on file documented as of this encounter Visit Diagnoses Not on filedocumented in this encounter Care Teams Body Liner Relationship Specialty Start Date End Date Osmar Gallagher MD [address] [facility] [place] [address] PCP - General 03/16/17 09/14/22 documented as of this encounter
[2025-03-20 18:03] LABS: CT PCR NOT DETECTED (Not Detect.); NG PCR NOT DETECTED (Not Detect.)
== END 2025-03-20 16:11 | disposition home or self-care (01) ==
LOC: HO.HHCLNP 16:10
PROVIDERS: Visit Provider Nurse Practitioner Primary Care
DX: Z11.3 Encounter for screening for infections with a predominantly sexual mode of transmission (principal)
CPT/HCPCS: 87491; 87591

== ENCOUNTER 2025-03-26 08:06 | Outpatient (REF) | payer OTHER, SELFPAY ==
[2025-03-26 11:46] LABS: Hemoglobin A1C 136.7661 umol/L; Total Hemoglobin (HGBA1C) 3230.9252 umol/L
[2025-03-26 12:06] LABS: Anion Gap 13 (12-20); Blood Urea Nitrogen 9 mg/dL (9-16); Calcium 9.5 mg/dL (8.4-10.2); Carbon Dioxide 27 mmol/L (22-29); Chloride 103 mmol/L (96-108); Cholesterol 181 mg/dL (<200); Estimated Glomerular Filt Rate > 60; HDL Cholesterol 42 mg/dL (>40); Potassium 4.0 mmol/L (3.3-5.1); Sodium 139 mmol/L (135-145); Triglycerides 148 mg/dL (<150)
[2025-03-26 12:10] LABS: Microalbum/Creatinine Ratio Ur 93.0 ug/mg cr (<30)
[2025-03-26 13:40] LABS: HIV Num 1 0.06 S/CO (0.00-0.99); ~HepC Num1 0.18 S/CO (0.00-0.79); ~Hepatitis C Antibody Nonreactive (Nonreactive)
[2025-03-26 13:43] LABS: Syphilis Screen Nonreactive (Nonreactive)
== END 2025-03-26 08:07 | disposition home or self-care (01) ==
LOC: HO.HHCL 08:06
PROVIDERS: PCP Nurse Practitioner Primary Care; Visit Provider Nurse Practitioner Primary Care
DX: Z00.00 Encounter for general adult medical examination without abnormal findings (principal); Z11.3 Encounter for screening for infections with a predominantly sexual mode of transmission; Z11.59 Encounter for screening for other viral diseases; Z11.4 Encounter for screening for human immunodeficiency virus [HIV]; I10 Essential (primary) hypertension; R73.09 Other abnormal glucose
CPT/HCPCS: 36415; 80048; 80061; 82043; 82306; 82570; 83036; 86780; 86803; 87389